=== PATIENT | female | born 1950 | race Two or more races ===

== ENCOUNTER 2022-10-02 07:18 | Day surgery (SDC) | payer OTHER ==
[~2022-10-02 07:18] MED LIST: PROAIR RESPICL90 MCG IH; ZESTRIL20 MG PO
== END 2022-10-02 15:40 | disposition home or self-care (01) ==
LOC: CIR.AMB 07:18 → O/R 07:18 → CIR.AMB 08:45
PROVIDERS: ATTEND Obstetrics & Gynecology
DX: N95.0 Postmenopausal bleeding (principal); N84.0 Polyp of corpus uteri; Z20.822 Contact with and (suspected) exposure to COVID-19; I10 Essential (primary) hypertension